=== PATIENT | male | born 1955 | race Hispanic/Latino ===

== ENCOUNTER → 2025-05-28 | Day surgery (SDC) | payer MEDICARE ==
[2025-05-23 14:55] LABS: BASOPHILS % 0.5 % (0.0-1.0); EOSINOPHILS % 5.0 % (0.0-6.0); LYMPHOCYTES % 36.4 % (18.0-39.1); MONOCYTES % 10.0 % (4.4-11.3); NEUTROPHILS % 47.6 % (38.7-80.0); RED CELL DISTRIBUTION WIDTH 13.0 % (11.7-14.4)
[~2025-05-28] MED LIST: FENTANYL CITRATE/PF 100MCG/2 ML INJ ONE; LIDOCAINE HCL 2% LOCAL INJ 5 ML SDV VIAL INJ ONE; ONDANSETRON HCL INJ 2MG/ML 2ML 2 MG/ML VIAL ONE; PROPOFOL IV EMULSION 50 ML IV ONE
[2025-05-28] MEDS: LACTATED RINGER'S 1,000 ML ONE (10:22)
[2025-05-28 12:25] VITALS: BP 166/86; PULSE 62; RESP 16; TEMP 98.7; O2SAT 96
== END | disposition home or self-care (01) ==
LOC: OR 07:46
PROVIDERS: ATTEND Internal Medicine Gastroenterology
DX: Z12.11 Encounter for screening for malignant neoplasm of colon (principal); D12.3 Benign neoplasm of transverse colon; K57.30 Diverticulosis of large intestine without perforation or abscess without bleeding; K63.5 Polyp of colon; K64.8 Other hemorrhoids; I10 Essential (primary) hypertension; K76.0 Fatty (change of) liver, not elsewhere classified; F10.90 Alcohol use, unspecified, uncomplicated; Z68.32 Body mass index [BMI] 32.0-32.9, adult; Z01.810 Encounter for preprocedural cardiovascular examination; Z01.812 Encounter for preprocedural laboratory examination
CPT/HCPCS: 36415; 45384; 45385; 85025; 88305; 93005; J2003; J2405; J2704; J3010; J7121